=== PATIENT | female | born 1985 | race Two or more races ===

== ENCOUNTER 2019-12-27 10:43 | Emergency (ER) | payer BC ==
[~2019-12-27] VITALS: Ht 170.2 cm; Wt 71.7 kg
--- NOTE | 2019-12-27 11:10 | NUR ---
"Mother Dx w/COVID last monday I feel SOB/have sore throat/nausea" Patient a/ox4, breathing even and unlabored, no sob noted. Needs attended. Kept comfortable.
[2019-12-27 11:39] VITALS: BP 131/87
--- NOTE | 2019-12-27 11:39 | NUR ---
COVID SWAB SENT
--- NOTE | 2019-12-27 11:39 | NUR ---
Patient discharged to home in stable condition. Written and verbal after care instructions given. Patient verbalizes understanding of instruction.
--- NOTE | 2019-12-28 15:59 | NUR ---
CALLED PT REGARDING COVID RESULT.
== END 2019-12-27 11:41 | disposition home or self-care (01) ==
LOC: ER 10:46
DX: U07.1 COVID-19 (principal); J06.9 Acute upper respiratory infection, unspecified
CPT/HCPCS: 99283; C9803; U0003